=== PATIENT | female | born 1965 | race Caucasian/White ===

== ENCOUNTER → 2020-02-21 12:36 | Outpatient (BNVA) | payer OTHER, SELFPAY | PROVIDERS: Visit Provider Family Medicine | DX: E03.9 Hypothyroidism, unspecified (principal); J45.909 Unspecified asthma, uncomplicated; Z79.899 Other long term (current) drug therapy | CPT/HCPCS: 80053; 80061; 84443; 85025 ==

== ENCOUNTER → 2020-09-22 10:45 | Outpatient (BNVA) | payer OTHER, SELFPAY | PROVIDERS: PCP Family Medicine; Visit Provider Family Medicine | DX: E03.8 Other specified hypothyroidism (principal); J45.30 Mild persistent asthma, uncomplicated; M79.7 Fibromyalgia | CPT/HCPCS: 80053; 80061; 84443 ==

== ENCOUNTER → 2020-11-25 08:53 | Outpatient (BNVA) | payer OTHER, SELFPAY | PROVIDERS: PCP Family Medicine; Visit Provider Family Medicine | DX: R74.8 Abnormal levels of other serum enzymes (principal) | CPT/HCPCS: 80076 ==

== ENCOUNTER → 2021-01-26 12:11 | Outpatient (BNVA) | payer OTHER, SELFPAY | PROVIDERS: PCP Family Medicine; Visit Provider Family Medicine | DX: Z01.419 Encounter for gynecological examination (general) (routine) without abnormal findings (principal); E03.8 Other specified hypothyroidism; M05.7A Rheumatoid arthritis with rheumatoid factor of other specified site without organ or systems involvement; M79.7 Fibromyalgia; Z12.39 Encounter for other screening for malignant neoplasm of breast; Z23 Encounter for immunization | CPT/HCPCS: 80053; 80061; 84443; 85025; 88175 ==

== ENCOUNTER 2021-04-09 14:06 | Outpatient (CLI) | payer OTHER, SELFPAY ==
--- NOTE | 2021-04-09 14:30 | MM_ITS ---
WS: [email or web address] BILATERAL DIGITAL SCREENING MAMMOGRAPHY WITH CAD CLINICAL INFORMATION: Z12.39 - Encounter for other screening for malignant neop... HISTORY: Screening mammogram. No current complaints. COMPARISON: Outside mammograms 2013, 2016, 2018. TECHNIQUE: Bilateral CC and MLO views. FINDINGS: The breasts are composed of heterogeneous fibroglandular density tissue, which can limit the detectio n of small underlying mass lesions. Increasing heterogeneous cluster calcifications posterior depth u pper outer right breast increased since 2018. Recommend spot magnification views in further evaluatio n. Left breast is unremarkable and unchanged. MM/[place] [id number] IMPRESSION: BI-RADS: 0-Incomplete: Need additional imaging evaluation FOLLOW UP: Need Additional Imaging Recommend diagnostic mammography with spot magnification views heterogeneous ca lcifications posterior depth upper outer RIGHT breast.
== END 2021-04-09 14:07 | disposition home or self-care (01) ==
LOC: RADSHAW 14:17
PROVIDERS: PCP Family Medicine; Visit Provider Family Medicine
DX: Z12.31 Encounter for screening mammogram for malignant neoplasm of breast (principal)
CPT/HCPCS: 77067

== ENCOUNTER 2021-05-13 13:00 | Outpatient (CLI) | payer OTHER, SELFPAY ==
--- NOTE | 2021-05-13 13:12 | MM_ITS ---
WS: [email or web address] RIGHT DIGITAL MAMMOGRAPHY WITH CAD CLINICAL INFORMATION: R92.1 - Mammographic calcification found on diagnostic im... COMPARISON: April 09, 2021 TECHNIQUE: 4 views of the right breast were obtained. FINDINGS: The right breast is composed of heterogeneous fibroglandular density tissue, which can limit the dete ction of small underlying mass lesions. Amorphous heterogeneous calcifications upper outer right fouzia st stable in appearance compared to the prior examination. Calcifications are indeterminant and some are in a branching configuration. Recommend further evaluation with stereotactic guided biopsy. MM/[place] [id number] IMPRESSION: BI-RADS: 4-Suspicious Finding-Biopsy Should Be Considered FOLLOW UP: Stereotactic Biopsy Recommended RECOMMEND STEREOTACTIC GUIDED BIOPSY CALCIFICATIONS UPPER OUTER RIGHT BREAST.
== END 2021-05-13 13:01 | disposition home or self-care (01) ==
LOC: RADSHAW 13:09
PROVIDERS: PCP Family Medicine; Visit Provider Family Medicine
DX: R92.1 Mammographic calcification found on diagnostic imaging of breast (principal)
CPT/HCPCS: 77065

== ENCOUNTER 2021-06-08 12:04 | Outpatient (CLI) | payer OTHER, SELFPAY ==
--- NOTE | 2021-06-08 12:23 | MM_ITS ---
WS: [email or web address] STEREOTACTIC LEFT BREAST BIOPSY WITH VACUUM ASSISTANCE. History: Heterogeneous RIGHT breast calcifications. Biopsy recommended for suspicious calcifications. Comparison: May 13, 2021 Procedure, risks, and complications were discussed the patient who agreed to proceed. Prior imaging w as reviewed. Cluster of calcifications within the RIGHT breast are localized. Stereotactic imaging was performed. Patient was prepped and draped in usual sterile fashion. After 1% lidocaine, calcifications were targ eted stereotactically in the RIGHT breast. Small incision was made. Needle advanced into the cluster of calcifications RIGHT breast with imaging demonstrating appropriate position relative to the calcif ications. Multiple vacuum-assisted core biopsies were obtained. Postprocedure imaging demonstrates ca lcifications within the biopsy specimen. The biopsy cavity was lavaged. Titanium clip was placed at the biopsy site. Postprocedure imaging dem onstrates clip in good position. No immediate complications. MM/[place] [id number] IMPRESSION: 1. Uncomplicated vacuum-assisted stereotactic biopsy of calcifications in the RIGHT breast. Pathology: A. Breast, right , calcifications, stereotactic biopsy: -Benign breast tissue with fibrocystic changes and numerous microcalcifications . -Multiple foci of usual ductal hyperplasia with sclerosing adenosis. -No atypia or malignancy identified. Recommend 6 month diagnostic mammographic follow-up postbiopsy with spot magnif ication views of the calcifications.
--- NOTE | 2021-06-08 12:23 | MM_ITS ---
WS: [email or web address] STEREOTACTIC LEFT BREAST BIOPSY WITH VACUUM ASSISTANCE. History: Heterogeneous RIGHT breast calcifications. Biopsy recommended for suspicious calcifications. Comparison: May 13, 2021 Procedure, risks, and complications were discussed the patient who agreed to proceed. Prior imaging w as reviewed. Cluster of calcifications within the RIGHT breast are localized. Stereotactic imaging was performed. Patient was prepped and draped in usual sterile fashion. After 1% lidocaine, calcifications were targ eted stereotactically in the RIGHT breast. Small incision was made. Needle advanced into the cluster of calcifications RIGHT breast with imaging demonstrating appropriate position relative to the calcif ications. Multiple vacuum-assisted core biopsies were obtained. Postprocedure imaging demonstrates ca lcifications within the biopsy specimen. The biopsy cavity was lavaged. Titanium clip was placed at the biopsy site. Postprocedure imaging dem onstrates clip in good position. No immediate complications. MM/MM surgical specimen RT IMPRESSION: 1. Uncomplicated vacuum-assisted stereotactic biopsy of calcifications in the RIGHT breast. Pathology: A. Breast, right , calcifications, stereotactic biopsy: -Benign breast tissue with fibrocystic changes and numerous microcalcifications . -Multiple foci of usual ductal hyperplasia with sclerosing adenosis. -No atypia or malignancy identified. Recommend 6 month diagnostic mammographic follow-up postbiopsy with spot magnif ication views of the calcifications.
--- NOTE | 2021-06-08 12:30 | MM_ITS ---
WS: [email or web address] STEREOTACTIC LEFT BREAST BIOPSY WITH VACUUM ASSISTANCE. History: Heterogeneous RIGHT breast calcifications. Biopsy recommended for suspicious calcifications. Comparison: May 13, 2021 Procedure, risks, and complications were discussed the patient who agreed to proceed. Prior imaging w as reviewed. Cluster of calcifications within the RIGHT breast are localized. Stereotactic imaging was performed. Patient was prepped and draped in usual sterile fashion. After 1% lidocaine, calcifications were targ eted stereotactically in the RIGHT breast. Small incision was made. Needle advanced into the cluster of calcifications RIGHT breast with imaging demonstrating appropriate position relative to the calcif ications. Multiple vacuum-assisted core biopsies were obtained. Postprocedure imaging demonstrates ca lcifications within the biopsy specimen. The biopsy cavity was lavaged. Titanium clip was placed at the biopsy site. Postprocedure imaging dem onstrates clip in good position. No immediate complications. MM/[place] [id number] IMPRESSION: 1. Uncomplicated vacuum-assisted stereotactic biopsy of calcifications in the RIGHT breast. Pathology: A. Breast, right , calcifications, stereotactic biopsy: -Benign breast tissue with fibrocystic changes and numerous microcalcifications . -Multiple foci of usual ductal hyperplasia with sclerosing adenosis. -No atypia or malignancy identified. Recommend 6 month diagnostic mammographic follow-up postbiopsy with spot magnif ication views of the calcifications.
== END 2021-06-08 12:05 | disposition home or self-care (01) ==
PROVIDERS: PCP Family Medicine; Visit Provider Family Medicine
DX: R92.1 Mammographic calcification found on diagnostic imaging of breast (principal); N62 Hypertrophy of breast
CPT/HCPCS: 19283; 77065; 88305

== ENCOUNTER → 2021-12-15 12:10 | Outpatient (BNVA) | payer OTHER, SELFPAY | PROVIDERS: PCP Family Medicine; Visit Provider Family Medicine | DX: Z79.899 Other long term (current) drug therapy (principal); M47.819 Spondylosis without myelopathy or radiculopathy, site unspecified | CPT/HCPCS: 82565; 84450; 84460; 85025; 85651; 86140 ==

== ENCOUNTER 2021-12-17 15:00 | Outpatient (CLI) | payer OTHER, SELFPAY ==
--- NOTE | 2021-12-17 15:04 | MM_ITS ---
WS: [email or web address] RIGHT 3D TOMOSYNTHESIS DIGITAL MAMMOGRAPHY WITH CAD CLINICAL INFORMATION: N63.0 - Unspecified lump in unspecified breast COMPARISON: June 08, 2021 TECHNIQUE: 3 views of the right breast were obtained. FINDINGS: The right breast is composed of heterogeneous fibroglandular density tissue, which can limit the dete ction of small underlying mass lesions. Biopsy marker RIGHT breast in the area of previously biopsied calcifications. Residual calcifications are stable in appearance. No new findings. No suspicious focal mass, asymmetry, calcifications, or architectural distortion. No evidence of katia gnancy. MM/[place] [id number] IMPRESSION: BI-RADS: 2-Benign FOLLOW UP: 1 Year Follow-up Recommend return to annual diagnostic mammography.
== END 2021-12-17 15:01 | disposition home or self-care (01) ==
LOC: RAD 15:01
PROVIDERS: PCP Family Medicine; Visit Provider Family Medicine
DX: N63.10 Unspecified lump in the right breast, unspecified quadrant (principal)
CPT/HCPCS: 77061

== ENCOUNTER → 2022-06-15 10:33 | Outpatient (BNVA) | payer OTHER, SELFPAY | PROVIDERS: PCP Family Medicine; Visit Provider Internal Medicine Rheumatology | DX: M05.7A Rheumatoid arthritis with rheumatoid factor of other specified site without organ or systems involvement (principal); Z79.899 Other long term (current) drug therapy; M06.9 Rheumatoid arthritis, unspecified; Z11.59 Encounter for screening for other viral diseases | CPT/HCPCS: 73130; 73630; 80076; 82306; 82565; 85025; 85651; 86036; 86140 ==

== ENCOUNTER → 2022-07-11 10:26 | Outpatient (BNVA) | payer OTHER, SELFPAY | PROVIDERS: PCP Family Medicine; Visit Provider Internal Medicine Rheumatology | DX: M05.7A Rheumatoid arthritis with rheumatoid factor of other specified site without organ or systems involvement (principal); Z11.59 Encounter for screening for other viral diseases; Z79.899 Other long term (current) drug therapy; E03.8 Other specified hypothyroidism; R53.83 Other fatigue; E03.9 Hypothyroidism, unspecified | CPT/HCPCS: 84439; 84443; 86480 ==

== ENCOUNTER → 2022-08-23 10:17 | Outpatient (BNVA) | payer OTHER, SELFPAY | PROVIDERS: PCP Family Medicine; Visit Provider Internal Medicine Rheumatology | DX: M05.79 Rheumatoid arthritis with rheumatoid factor of multiple sites without organ or systems involvement (principal); M79.7 Fibromyalgia; Z71.85 Encounter for immunization safety counseling; Z79.899 Other long term (current) drug therapy | CPT/HCPCS: 36415; 80076; 82565; 85025; 86140 ==

== ENCOUNTER → 2022-11-29 10:17 | Outpatient (BNVA) | payer OTHER, SELFPAY | PROVIDERS: PCP Family Medicine; Visit Provider Internal Medicine Rheumatology | DX: Z79.899 Other long term (current) drug therapy (principal); M05.79 Rheumatoid arthritis with rheumatoid factor of multiple sites without organ or systems involvement; M79.7 Fibromyalgia; Z71.85 Encounter for immunization safety counseling | CPT/HCPCS: 36415; 80076; 82565; 85025; 86140 ==

== ENCOUNTER 2023-02-08 15:11 | Outpatient (CLI) | payer OTHER, SELFPAY ==
--- NOTE | 2023-02-08 15:20 | MM_ITS ---
WS: [email or web address] BILATERAL 3D TOMOSYNTHESIS DIGITAL SCREENING MAMMOGRAPHY WITH CAD CLINICAL INFORMATION: Z12.31 - Encounter for screening mammogram for malignant ... HISTORY: Screening mammogram. No current complaints. COMPARISON: 2021 TECHNIQUE: Bilateral CC and MLO views. FINDINGS: The breasts are composed of heterogeneous fibroglandular density tissue, which can limit the detectio n of small underlying mass lesions. No suspicious mass, asymmetry, calcifications, or architectural d istortion. No evidence of malignancy. Biopsy marker RIGHT breast with stable previously biopsied calc ifications. IMPRESSION: MM/[place] [id number] BI-RADS: 2-Benign FOLLOW UP: 1 Year Follow-up Recommend return to annual screening mammography.
== END 2023-02-08 15:12 | disposition home or self-care (01) ==
LOC: RAD 15:12
PROVIDERS: PCP Family Medicine; Visit Provider Family Medicine
DX: Z12.31 Encounter for screening mammogram for malignant neoplasm of breast (principal)
CPT/HCPCS: 77063; 77067

== ENCOUNTER → 2023-03-07 10:34 | Outpatient (BNVA) | payer OTHER, SELFPAY | PROVIDERS: PCP Family Medicine; Visit Provider Internal Medicine Rheumatology | DX: M05.79 Rheumatoid arthritis with rheumatoid factor of multiple sites without organ or systems involvement (principal); Z79.899 Other long term (current) drug therapy | CPT/HCPCS: 80076; 82565; 85025; 86140 ==

== ENCOUNTER → 2023-06-06 15:09 | Outpatient (BNVA) | payer BC, SELFPAY | PROVIDERS: PCP Family Medicine; Visit Provider Family Medicine | DX: E03.8 Other specified hypothyroidism (principal); M05.7A Rheumatoid arthritis with rheumatoid factor of other specified site without organ or systems involvement; J45.30 Mild persistent asthma, uncomplicated; Z79.899 Other long term (current) drug therapy | CPT/HCPCS: 80053; 80061; 84443; 85025 ==

== ENCOUNTER → 2023-10-03 10:14 | Outpatient (BNVA) | payer BC, SELFPAY | PROVIDERS: PCP Family Medicine; Visit Provider Family Medicine | DX: M21.612 Bunion of left foot (principal); M25.511 Pain in right shoulder; M54.50 Low back pain, unspecified; M25.50 Pain in unspecified joint; M25.521 Pain in right elbow; Z79.899 Other long term (current) drug therapy; M05.79 Rheumatoid arthritis with rheumatoid factor of multiple sites without organ or systems involvement | CPT/HCPCS: 80076; 82565; 84550; 85025; 85651; 86140 ==

== ENCOUNTER 2023-10-09 10:04 | Outpatient (CLI) | payer BC, SELFPAY ==
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
== END 2023-10-09 10:05 | disposition home or self-care (01) ==
LOC: RAD 10:05
PROVIDERS: PCP Family Medicine; Visit Provider Family Medicine
DX: M25.511 Pain in right shoulder (principal); M51.36 Other intervertebral disc degeneration, lumbar region; M19.09 Primary osteoarthritis, other specified site
CPT/HCPCS: 72100; 73030

== ENCOUNTER → 2023-10-23 09:01 | Outpatient (BNVA) | payer BC, SELFPAY | PROVIDERS: PCP Family Medicine; Visit Provider Podiatrist Foot & Ankle Surgery | DX: M21.611 Bunion of right foot; M21.612 Bunion of left foot; M25.871 Other specified joint disorders, right ankle and foot; M19.071 Primary osteoarthritis, right ankle and foot | CPT/HCPCS: 73630 ==

== ENCOUNTER 2023-11-28 09:01 | Outpatient (CLI) | payer BC, SELFPAY ==
--- NOTE | 2023-11-28 09:30 | MR_ITS ---
WS: [email or web address] MRI RIGHT SHOULDER NONCONTRAST TECHNIQUE: Sagittal T2, coronal T1, T2 and proton density imaging. Axial gradient PDE imaging. CLINICAL INFORMATION: rt shoulder pain COMPARISON: None. FINDINGS: Moderate degenerative arthritis of the AC joint with mild edema. Moderate downsloping acromion with s ubacromial spurring. Impingement distal supraspinatus. Tiny amount of subacromial subdeltoid fluid. T endinopathy in the supraspinatus and infraspinatus. Mild chronic thinning of the supraspinatus. Normal teres minor. Normal subscapularis. Normal biceps tendon in the bicipital groove. Intra-articul ar biceps tendon appears intact. Normal bone marrow signal in the humerus and glenoid. Moderate degen erative narrowing of the glenohumeral articulation. Small lobulated ganglion cyst along the ventral s ubscapularis measuring 10 mm. MR/MR shoulder RT wo con* [id number] IMPRESSION: 1. Moderate degenerative arthritis AC joint with moderate downsloping acromion . Small amount of associated fluid and edema. 2. Impingement distal supraspinatus with tendinopathy in the supraspinatus and infraspinatus. 3. Rotator cuff is otherwise intact. 4. Normal biceps tendon in the bicipital groove. 5. Intra-articular biceps tendon appears intact. 6. No other acute findings.
== END 2023-11-28 09:02 | disposition home or self-care (01) ==
LOC: RAD 09:02
PROVIDERS: PCP Family Medicine; Visit Provider Family Medicine
DX: M19.011 Primary osteoarthritis, right shoulder (principal); M75.41 Impingement syndrome of right shoulder; M25.711 Osteophyte, right shoulder
CPT/HCPCS: 73221

== ENCOUNTER 2023-12-26 06:00 | Outpatient (RCR) | payer BC, SELFPAY | END 2024-01-22 23:59 | disposition home or self-care (01) | LOC: TPT 06:00 | PROVIDERS: Visit Provider Family Medicine | DX: M25.511 Pain in right shoulder (principal) | CPT/HCPCS: 97110; 97161 ==

== ENCOUNTER 2024-01-23 06:00 | Outpatient (RCR) | payer BC, SELFPAY | END 2024-01-30 23:59 | disposition home or self-care (01) | LOC: TPT 06:00 | PROVIDERS: Visit Provider Family Medicine | DX: M25.511 Pain in right shoulder (principal) | CPT/HCPCS: 97110 ==

== ENCOUNTER 2024-02-01 10:11 | Emergency (ER) | payer BC, SELFPAY ==
[2024-02-01 10:28] VITALS: BP 146/46; PULSE 86; RESP 16; TEMP 37.1; O2SAT 98; BMI 23.7
--- NOTE | 2024-02-01 10:34 | CT_ITS ---
WS: [email or web address] CT ABDOMEN PELVIS TECHNIQUE: Contrast-enhanced CT of the abdomen and pelvis with coronal and sagittal reformatted image s. CLINICAL INFORMATION: Abdominal pain COMPARISON: None. DLP: 384.[address] scans at [facility] use at least one of these dose optimization techniques: automated e xposure control; mA and/or kV adjustment per patient size (includes targeted exams where dose is matc hed to clinical indication); or iterative reconstruction. FINDINGS: Diffuse thickening with submucosal enhancement and surrounding induration in the LEFT colon extending from the splenic flexure through the sigmoid colon. Findings suspicious for an infectious or inflamm atory colitis. A few sigmoid diverticuli with 1 or 2 LEFT colon diverticuli. No drainable abscess or fluid collection. Diffuse fatty infiltration of the liver. Normal portal vein and splenic vein. Normal GE junction. Adr enal glands are normal. No hydronephrosis in either kidney. Normal pancreatic enhancement. Normal river iber abdominal aorta. Celiac and SMA are patent. GINETTE is patent. Lung bases are well aerated. Tiny fat-containing umbilical hernia. Trace free fluid in the cul-de-sac . Low-attenuation enlarged RIGHT inguinal lymph node indeterminate measuring 2.1 x 1.5 cm. Disc space narrowing L4-5 and L5-S1. Heterogeneously enhancing retroverted uterus with endometrial thickening at the uterine fundus. Recom mend [employer] follow-up and pelvic ultrasound. Endometrial neoplasia/hyperplasia not excluded in a postmen opausal patient. Probably small uterine fibroids. In addition, mild soft tissue thickening along the cervix. CT/CT abdomen pelvis w con* [id number] IMPRESSION: 1. Diffuse colitis extending from the splenic flexure into the sigmoid colon. Diffuse thickening with inflammatory stranding and induration about the LEFT co areli. Some of this may be due to diverticulitis but diffusely involves the LEFT colon. Also consider inflammatory bowel disease. Recommend follow-up to resolut ion. 2. Sigmoid diverticulosis. A few diverticuli in the LEFT colon. 3. No drainable abscess or fluid collection. 4. Diffuse fatty infiltration of the liver. 5. No other acute findings. 6. Enlarged RIGHT inguinal lymph node measuring 2.2 x 1.5 cm is indeterminant. Consider further evaluation with ultrasound-guided biopsy if persistent. 7. Heterogeneously nodular enhancing retroverted uterus with endometrial and c ervical thickening. Recommend [employer]ATING [employer] follow-up. Endometrial hyperplasia/neoplasia not excluded in a postmenopausal patient. 8. In addition lobulation along the dorsal uterus suspicious for uterine fibro id. Notified Dafne Coats MD at 02/01/2024 11:38 AM.
--- NOTE | 2024-02-01 10:34 | W.ED.ABDPA2 ---
HPI - Abdominal Pain General: Chief Complaint: Abdominal Pain Stated Complaint: abd pain Time Seen by Provider: 02/01/24 10:25 History of Present Illness: 58-year-old female who presents emergency room with abdominal pain, nausea and vomiting. Says this started overnight. She had very low abdominal pain. All the way across the bottom of her abdomen. She has had bright red blood in her stools. She had nausea and vomiting because of the pain. Possibly had a fever. She had chills. She says over the last year she has had 5 episodes where when she would go to the bathroom she would have vomiting. No dysuria. No chest pain. No shortness of breath. No altered mental status. Related Data Home Medications Medication Instructions Recorded Confirmed finasteride 5 mg tablet 5 mg PO DAILY hair loss 10/23/23 02/01/24 minoxidil 2.5 mg tablet 2.5 mg PO DAILY 02/01/24 02/01/24 Previous Rx's Medication Instructions Recorded estradiol 0.05 mg/24 hr weekly 1 patch transdermal .weekly #12 ea 05/26/23 transdermal patch albuterol sulfate 90 mcg/actuation 2 puff inhalation Q6H PRN 06/06/23 aerosol inhaler bronchospasm #8.5 grams fluticasone 500 mcg-salmeterol 50 1 inh inhalation BID #180 ea 06/06/23 mcg/dose blistr powdr for inhalation (Advair Diskus) levothyroxine 50 mcg tablet 50 mcg PO DAILY #90 tabs 06/06/23 (Synthroid) montelukast 10 mg tablet 10 mg PO DAILY #90 tabs 06/06/23 oxycodone-acetaminophen 5 mg-325 1 tab PO Q6H PRN pain 7 days #28 06/06/23 mg tablet tabs prednisone 20 mg tablet See Rx Instructions PO .COMPLEX 11/21/23 PRN joint pain flare #30 tabs tofacitinib 5 mg tablet (Xeljanz) 5 mg PO BID #60 tabs 11/21/23 hydroxychloroquine 200 mg tablet 200 mg PO BID #180 tabs 12/18/23 ciprofloxacin HCl 500 mg tablet 500 mg PO BID 10 days #20 tabs 02/01/24 hydrocodone 5 mg-acetaminophen 325 1 tab PO Q6H PRN pain #20 tabs 02/01/24 mg tablet metronidazole 500 mg tablet 500 mg PO Q8H 10 days #30 tabs 02/01/24 ondansetron 8 mg disintegrating 8 mg PO Q6H #14 tabs 02/01/24 tablet prednisone 20 mg tablet 60 mg (3 x 20 mg) PO DAILY #20 tabs 02/01/24 Allergies Allergy/AdvReac Type Severity Reaction Status Date / Time adalimumab-adaz Allergy Unknown low BP Verified 02/01/24 10:34 [From Hyrimoz] upadacitinib [From Rinvoq] Allergy Unknown Constipatio Verified 02/01/24 10:34 n cephalexin [From Keflex] Allergy Unknown Verified 02/01/24 10:34 erythromycin base Allergy ALGY-Anaphy Verified 02/01/24 10:34 laxis Penicillins Allergy ALGY-Hives Verified 02/01/24 10:34 Sulfa (Sulfonamide Allergy ALGY-Hives Verified 02/01/24 10:34 Antibiotics) venlafaxine [From Effexor] Allergy Unknown Verified 02/01/24 10:34 Review of Systems Narrative: Constitutional symptoms: Negative except as documented in HPI. Skin symptoms: Negative except as documented in HPI. Eye symptoms: Negative except as documented in HPI. ENMT symptoms: Negative except as documented in HPI. Respiratory symptoms: Negative except as documented in HPI. Cardiovascular symptoms: Negative except as documented in HPI. Gastrointestinal symptoms: Negative except as documented in HPI. Genitourinary symptoms: Negative except as documented in HPI. Musculoskeletal symptoms: Negative except as documented in HPI. Neurologic symptoms: Negative except as documented in HPI. Psychiatric symptoms: Negative except as documented in HPI. Endocrine symptoms: Negative except as documented in HPI. PFSH ED PFSH: Medical History Immunization counseling Seropositive rheumatoid arthritis of multiple sites Alopecia Joint pain High risk medication use Hypothyroid Rheumatoid arthritis Asthma Fibromyalgia Surgical History Hx of appendectomy Hx of eye surgery History of ankle surgery Family History Father Cancer lung Mother Cancer lung Diabetes Grandmother Cancer breast Other Hypertension Lupus Denies family history of Rheumatoid arthritis Clotting disorder Anesthesia complication Bleeding disorder Family history of premature coronary artery disease Lung disease Stroke Social History Smoking and tobacco/nicotine status: never used tobacco/nicotine Second hand smoke exposure: No Alcohol intake: current Alcohol intake frequency: holidays/special occasions only Substance/Drug Use: never Lives independently: Yes Household members: spouse Marital status: Current occupational status: employed Current gender identity: Female Special harrison needs: No Agree to transfusion: Yes Physical Exam Narrative: EXAM NARRATIVE: General: Alert, no acute distress. Skin: Warm, dry. Head: Normocephalic, atraumatic. Neck: Supple, trachea midline. Eye: Extraocular movements are intact. Ears, nose, mouth and throat: mucosa moist. Cardiovascular: Regular, Normal peripheral perfusion. Respiratory: Lungs are clear to auscultation, respirations are non-labored, breath sounds are equal, Symmetrical chest wall expansion. Gastrointestinal: Soft, complains of lower abdominal tenderness, Non distended Musculoskeletal: Normal ROM, no deformity. Neurological: Alert and oriented, No focal neurological deficit observed. Psychiatric: Cooperative, appropriate mood & affect. Course Vital Signs: Vital signs: Vital Signs Temperature 98.8 F 02/01/24 10:28 Pulse Rate 71 02/01/24 11:13 Respiratory Rate 16 02/01/24 10:28 Blood Pressure 127/71 02/01/24 11:13 Pulse Oximetry 96 02/01/24 11:13 Oxygen Delivery Me thod Room Air 02/01/24 11:13 MDM - Abdominal Pain Medical Decision Making Medical decision making: Differential diagnosis including but not limited to and based on the above HPI, review of systems and physical exam: Would have concern for diverticulitis, urinary tract infection, colitis, bowel obstruction, kidney stones Orders placed to evaluate differential diagnosis based on the above differential, HPI and physical exam Lab Review: Laboratory results were reviewed and interpreted by myself the emergency room physician. Some mild leukocytosis with a white count of 13.3. Hemoglobin normal at 14. No renal failure. BUN/creatinine are 14 and 0.8. CRP is mildly elevated at 6. CT of the abdomen pelvis: I discussed findings with the radiologist on-call. Some formation of the colon. Colitis. Also some mild enlargement of the uterus. Recommended follow-up with gynecology. This was reviewed and interpreted by myself the emergency room physician. I also reviewed the radiology report. I reviewed the patient's medical record. Reexamination: Patient remained stable. No increased work of breathing. No altered mental status. No focal motor deficits. Assessment and plan: Colitis ?Solu-Medrol, Cipro and Flagyl IV. - Discharged home - Discussed findings and plan with patient. Answered any questions. - All laboratory values were reviewed and interpreted personally by myself, the ER physician - All imaging was reviewed and interpreted personally by myself, the ER physician. - Evaluation and treatment of this problem were appropriate in the emergency setting Lab Data 02/01/24 10:41 02/01/24 10:41 Labs/Radiology: Laboratory Results WBC 13.24 10^3/uL (3.29-11.43) H 02/01/24 10:41 RBC 4.25 10^6/uL (3.85-5.65) 02/01/24 10:41 Hgb 14.00 g/dL (11.27-16.99) 02/01/24 10:41 Hct 41.2 % (36-47) 02/01/24 10:41 MCV 96.9 fl (85-98) 02/01/24 10:41 MCH 32.9 pg (27-33) 02/01/24 10:41 MCHC 34.0 g/dL (30-55) 02/01/24 10:41 RDW 12.3 % (12.1-15.1) 02/01/24 10:41 Plt Count 350 10^3/cmm (157-399) 02/01/24 10:41 MPV 9.5 fL (7.4-10.4) 02/01/24 10:41 Neut % (Auto) 81.9 % 02/01/24 10:41 Lymph % (Auto) 10.6 % 02/01/24 10:41 [place] % (Auto) 6.6 % 02/01/24 10:41 Eos % (Auto) 0.5 % 02/01/24 10:41 Baso % (Auto) 0.2 % 02/01/24 10:41 Neut # (Auto) 10.85 10^3/uL (1.8-7.7) H 02/01/24 10:41 Lymph # (Auto) 1.4 10^3/uL (0.8-4.8) 02/01/24 10:41 [place] # (Auto) 0.9 10^3/uL (0.2-0.9) 02/01/24 10:41 Eos # (Auto) 0.1 10^3/uL (0.0-0.8) 02/01/24 10:41 Baso # (Auto) 0.0 10^3/uL (0.0-0.1) 02/01/24 10:41 Nucleated RBC % (auto) 0 % 02/01/24 10:41 Nucleated RBCs # 0.0 /100WBC 02/01/24 10:41 Sodium 138 mmol/L (136-145) 02/01/24 10:41 Potassium 4.2 mmol/L (3.5-5.1) 02/01/24 10:41 Chloride 105 mmol/L (98-107) 02/01/24 10:41 Carbon Dioxide 23 mmol/L (22-29) 02/01/24 10:41 Anion Gap 14.2 (5-19) 02/01/24 10:41 BUN 14 mg/dL (6-20) 02/01/24 10:41 Creatinine 0.8 mg/dL (0.5-0.9) 02/01/24 10:41 GFR Calculation 73.9 mL/min (90-130) L 02/01/24 10:41 Glucose 94 mg/dL (65-115) 02/01/24 10:41 Calculated Osmolality 286 mOsm/kg (285-295) 02/01/24 10:41 Lactic Acid 0.9 mmol/L (0.5-2.2) 02/01/24 10:41 Calcium 8.8 mg/dL (8.5-10.5) 02/01/24 10:41 Total Bilirubin 1.1 mg/dL (0.15-1.2) 02/01/24 10:41 AST 33 U/L (0-32) H 02/01/24 10:41 ALT 18 U/L (0-33) 02/01/24 10:41 Alkaline Phosphatase 62 U/L (35-105) 02/01/24 10:41 C-Reactive Protein 6.1 mg/L (0.0-4.9) H 02/01/24 10:41 Total Protein 6.8 g/dL (6.6-8.7) 02/01/24 10:41 Albumin 4.1 g/dL (3.5-5.2) 02/01/24 10:41 Globulin 2.7 g/dL (1.3-4.6) 02/01/24 10:41 All radiology interpretation(s) finalized by discharge Discharge Plan Discharge Patient Disposition: Home Clinical Impression: Colitis Condition: Stable Prescriptions: New hydrocodone-acetaminophen 5-325 mg tablet 1 tab PO Q6H PRN (Reason: pain) Qty: 20 0RF prednisone 20 mg tablet 60 mg PO DAILY Qty: 20 0RF Rx Instructions: 3 tabs (60 mg) x 3 days. 2 tabs (40 mg) x 3 days. 1 tab (20 mg) x 3 days. 1/2 tab (10 mg) x 4 days metronidazole 500 mg tablet 500 mg PO Q8H 10 Days Qty: 30 0RF ciprofloxacin HCl 500 mg tablet 500 mg PO BID 10 Days Qty: 20 0RF ondansetron 8 mg tablet,disintegrating 8 mg PO Q6H Qty: 14 0RF Rx Instructions: Take 1/2-1 tab every 6 hours as needed for nausea and vomiting No Action oxycodone-acetaminophen 5-325 mg tablet 1 tab PO Q6H PRN (Reason: pain) 7 Days Qty: 28 0RF montelukast 10 mg tablet 10 mg PO DAILY Qty: 90 4RF levothyroxine [Synthroid] 50 mcg tablet 50 mcg PO DAILY Qty: 90 2RF fluticasone propion-salmeterol [Advair Diskus] 500-50 mcg/dose blister with device 1 inh INHALATION BID Qty: 180 2RF albuterol sulfate 90 mcg/actuation HFA aerosol inhaler 2 puff INHALATION Q6H PRN (Reason: bronchospasm) Qty: 8.5 4RF prednisone 20 mg tablet See Rx Instructions PO .COMPLEX PRN (Reason: joint pain flare) Qty: 30 1RF Rx Instructions: take 1 or 2 tab daily for 3-7 days as needed for arthritis flare PO PRN; Xeljanz 5 mg tablet 5 mg PO BID Qty: 60 5RF finasteride 5 mg tablet 5 mg PO DAILY estradiol 0.05 mg/24 hr patch weekly 1 patch transdermal .weekly Qty: 12 3RF hydroxychloroquine 200 mg tablet 200 mg PO BID Qty: 180 1RF minoxidil 2.5 mg tablet 2.5 mg PO DAILY Discharge Orders: Discharge ED (Routine); Ordered 02/01/24 Ordered By: Dafne Coats Discharge Diet: Usual diet Discharge Activity: Increase activity as tolerated Patient Instructions: Colitis (ED) Activity Restrictions/Additional Instructions: You need to have follow-up with your primary care physician and possibly director government for the colitis. Also there was some thickening of your uterus seen on CT for which you should follow with gynecology Thank you for choosing [facility] for your healthcare needs today. Please realize this is an emergency room and that we are providing you with a medical screening exam and this may not be complete and all inclusive of all the testing and or work up that you may need to determine your ailment or severity of your illness. You have been screened and evaluated and felt safe for discharge. Health conditions do change or evolve sometimes and as such it is important that you follow up with your Primary Doctor to be re checked, 3-5 days is a general good time frame for follow up. You are always welcome to return to the ED for re assessment if your symptoms are worsening or you have new concerns Coding Level of Care Code ED [employer] for Jesús Valente
[2024-02-01 10:44] VITALS: BP 119/71; O2SAT 96
[2024-02-01 10:46] LABS: Basophils % 0.2 %; Eosinophils # 0.1 10^3/uL (0.0-0.8); Eosinophils % 0.5 %; Hematocrit 41.2 % (36-47); Lymphocytes # 1.4 10^3/uL (0.8-4.8); Lymphocytes % 10.6 %; Mean Corpuscular Hemoglobin 32.9 pg (27-33); Mean Corpuscular Volume 96.9 fl (85-98); Mean Platelet Volume 9.5 fL (7.4-10.4); Monocytes # 0.9 10^3/uL (0.2-0.9); Monocytes % 6.6 %; Neutrophils # 10.85 10^3/uL (1.8-7.7); Neutrophils % 81.9 %; Nucleated Red Blood Cells % 0 %; Platelet Count 350 10^3/cmm (157-399); Red Blood Count 4.25 10^6/uL (3.85-5.65); Red Cell Distribution Width 12.3 % (12.1-15.1); White Blood Count 13.24 10^3/uL (3.29-11.43)
[2024-02-01] MEDS: iohexol 350 mg/mL 500 mL Btl (per mL) IV (10:52)
[2024-02-01 11:04] LABS: Lactic Sepsis W/Reflex 0.9 mmol/L (0.5-2.2)
[2024-02-01 11:05] LABS: Alanine Aminotransferase 18 U/L (0-33); Albumin Level 4.1 g/dL (3.5-5.2); Alkaline Phosphatase 62 U/L (35-105); Blood Urea Nitrogen 14 mg/dL (6-20); C Reactive Protein 6.1 mg/L (0.0-4.9); Calcium 8.8 mg/dL (8.5-10.5); Carbon Dioxide 23 mmol/L (22-29); Chloride 105 mmol/L (98-107); Globulin 2.7 g/dL (1.3-4.6); Glomerular Filtration Rate 73.9 mL/min (90-130); Glucose 94 mg/dL (65-115); Osmolality Calculated 286 mOsm/kg (285-295); Sodium 138 mmol/L (136-145); Total Bilirubin 1.1 mg/dL (0.15-1.2); Total Protein 6.8 g/dL (6.6-8.7)
[2024-02-01 11:13] VITALS: BP 127/71; PULSE 71; O2SAT 96
[2024-02-01 11:15] LABS: Anion Gap 14.2 (5-19); Aspartate Amino Transferase 33 U/L (0-32); Potassium 4.2 mmol/L (3.5-5.1)
--- NOTE | 2024-02-01 11:36 | PC.PHAR ---
patient does have a specialty pharmacy xeljanz 5mg with [facility], also used to use humira but states she stopped that for the xeljanz
[2024-02-01] MEDS: methylPREDNISolone sod succ 125 mg/2 mL INJ IVP (12:03)
[2024-02-01] MEDS: metroNIDAZOLE 500 MG Tablet PO (12:05)
[2024-02-01] MEDS: ciprofloxacin 400 MG/200 ML PREMIX 200 MG IV (12:08)
[2024-02-01 12:14] VITALS: BP 116/54; PULSE 82; O2SAT 98
[2024-02-01 12:52] VITALS: BP 129/59; PULSE 87; O2SAT 98
[2024-02-01 13:28] VITALS: BP 129/58; PULSE 83; RESP 14; O2SAT 96
== END 2024-02-01 13:30 | disposition home or self-care (01) ==
PROVIDERS: Emergency Provider Emergency Medicine
DX: K52.9 Noninfective gastroenteritis and colitis, unspecified (principal)
CPT/HCPCS: 74177; 80053; 83605; 85025; 86140; 96365; 96375; 99285; J0744; J2919

== ENCOUNTER 2024-03-12 13:37 | Outpatient (CLI) | payer BC, SELFPAY ==
--- NOTE | 2024-03-12 13:40 | MM_ITS ---
WS: [id number] BILATERAL 3D TOMOSYNTHESIS DIGITAL SCREENING MAMMOGRAPHY WITH CAD CLINICAL INFORMATION: Z12.39 - Encounter for other screening for malignant neop... HISTORY: Screening mammogram. No current complaints. COMPARISON: 2022 TECHNIQUE: Bilateral CC and MLO views. FINDINGS: The breasts are composed of heterogeneous fibroglandular density tissue, which can limit the detectio n of small underlying mass lesions. No suspicious mass, asymmetry, calcifications, or architectural d istortion. No evidence of malignancy. Biopsy clip RIGHT breast with relatively stable adjacent previo usly biopsied calcifications. MM/MM [facility] tomosynthesis [id number] IMPRESSION: DENSITY: The breasts are heterogeneously dense, which may obscure small masses. BI-RADS: 2 - Benign FOLLOW UP: 1 Year Follow-up Recommend return to annual screening mammography.
== END 2024-03-12 13:38 | disposition home or self-care (01) ==
LOC: MOBLMAM 13:39
PROVIDERS: PCP Nurse Practitioner Family; Visit Provider Nurse Practitioner Family
DX: Z12.31 Encounter for screening mammogram for malignant neoplasm of breast (principal); R92.333 Mammographic heterogeneous density, bilateral breasts
CPT/HCPCS: 77063; 77067

== ENCOUNTER 2024-03-14 10:34 | Outpatient (CLI) | payer BC, SELFPAY ==
--- NOTE | 2024-03-14 10:42 | US_ITS ---
WS: [id number] Complete ABDOMINAL ULTRASOUND ULTRASOUND BILATERAL INGUINAL CANALS. HISTORY: Pain. COMPARISON: CT 02/01/2024 Liver: 12.8 cm in length. Normal size liver and echogenicity. No bile duct dilatation or mass. Portal Vein: Normal hepatopetal flow with monophasic waveform. Gallbladder: Normally distended gallbladder with no stones or wall thickening. CBD: 0.5 cm Pancreas: Normal size and echogenicity. Right kidney: 9.4 cm x 4.2 x 3.1 cm. Cortex:1.0 cm. Normal size and echogenicity. No hydronephrosis or mass. Left kidney: 9.6 cm x 4.5 cm x 4.3 cm. Cortex: 0.9 cm. Normal size and echogenicity. No hydronephrosis or mass. Spleen: 7.7 cm. Normal size and echogenicity. Aorta and IVC: Unremarkable abdominal aorta and IVC. ULTRASOUND BILATERAL INGUINAL CANALS. Ultrasound is performed of the inguinal canals. No mass or adenopathy identified. Omental fat is note d along the inguinal canal. No omental hernia was noted on the recent CT. This omental fat images pro bably just above the inguinal canal. There is no mass identified. No adenopathy. US/US abdomen complete* [id number] Impression: 1. Negative abdomen ultrasound. 2. No inguinal adenopathy identified.
== END 2024-03-14 10:35 | disposition home or self-care (01) ==
LOC: RAD 10:34
PROVIDERS: PCP Nurse Practitioner Family; Visit Provider Surgery
DX: R59.0 Localized enlarged lymph nodes (principal); R10.13 Epigastric pain
CPT/HCPCS: 76700

== ENCOUNTER 2024-03-20 09:26 | Day surgery (SDC) | payer BC, SELFPAY ==
[2024-03-20 09:41] VITALS: BP 128/56; PULSE 91; RESP 17; TEMP 36.8; O2SAT 98
[2024-03-20 09:42] VITALS: BMI 23.0
[2024-03-20] MEDS: sodium chloride 0.9% 1,000 ML 30 ML IV (09:52)
--- NOTE | 2024-03-20 09:58 | ANES.PREANE2 ---
Pre-Anesthetic Assessment Height/Weight: Height 1.6 m Weight 58.967 kg Temp Pulse Resp BP Pulse Ox O2 Del Method 98.2 F 91 17 128/56 98 Room Air 03/20/24 09:41 03/20/24 09:41 03/20/24 09:41 03/20/24 09:41 03/20/24 09:41 03/20/24 09:41 Preop Diagnosis: screening Operation Date: 03/20/24 10:30 Proposed Procedures p EGD 60389, 97259, G0105, K92.2, K59.04, R14.0, R10.13(Not Applicable) - DO karen Porter Colonoscopy(Not Applicable) - Asher Sadler DO Familial anesthetic complications: none Was Beta Henri taken within 24 hours: N/A Was Clonidine taken within 24 hours: N/A Last intake: Intake Last Liquid Date 03/19/24 Last Liquid Time 20:00 Last Solid Date 03/18/24 Last Solid Time 18:00 Social No alcohol and No tobacco Exam alert, oriented x 3 and clear to auscultation bilaterally Airway Cervical ROM: within normal limits Mallampati: Class II Dentition: full History/ROS No significant history except as noted Pulmonary Asthma CV/HEM None reported None reported Hepatic None reported GI None reported Metabolic Thyroid Disease Musc/skel None reported Neuropsych None reported Anesthetic Plan ASA status: 2 Anesthesia: Anesthesia Evaluation and MAC Risk of > 500 ml blood loss (7ml/kg in children): No Medications/Allergies Home Medications Medication Instructions Recorded Confirmed Last Taken Type estradiol 0.05 mg/24 hr weekly 1 patch transdermal .weekly #12 ea 05/26/23 03/18/24 03/16/24 Rx transdermal patch albuterol sulfate 90 mcg/actuation 2 puff inhalation Q6H PRN 06/06/23 03/18/24 Unknown Rx aerosol inhaler bronchospasm #8.5 grams fluticasone 500 mcg-salmeterol 50 1 inh inhalation BID #180 ea 06/06/23 03/18/24 03/19/24 Rx mcg/dose blistr powdr for inhalation (Advair Diskus) levothyroxine 50 mcg tablet 50 mcg PO DAILY #90 tabs 06/06/23 03/18/24 03/19/24 Rx (Synthroid) montelukast 10 mg tablet 10 mg PO DAILY #90 tabs 06/06/23 03/18/24 03/19/24 Rx oxycodone-acetaminophen 5 mg-325 1 tab PO Q6H PRN pain 7 days #28 06/06/23 03/18/24 02/01/24 Rx mg tablet tabs finasteride 5 mg tablet 5 mg PO DAILY hair loss 10/23/23 03/18/24 03/19/24 History prednisone 20 mg tablet See Rx Instructions PO .COMPLEX 11/21/23 03/18/24 Unknown Rx PRN joint pain flare #30 tabs tofacitinib 5 mg tablet (Xeljanz) 5 mg PO BID #60 tabs 11/21/23 03/18/24 03/19/24 Rx hydroxychloroquine 200 mg tablet 200 mg PO BID #180 tabs 12/18/23 03/18/24 03/19/24 Rx hydrocodone 5 mg-acetaminophen 325 1 tab PO Q6H PRN pain #20 tabs 02/01/24 03/18/24 Unknown Rx mg tablet polyethylene glycol 3350 17 17 g PO DAILY 1 month #510 grams 02/19/24 03/18/24 03/19/24 Rx gram/dose oral powder (Miralax) ondansetron 8 mg disintegrating 8 mg PO Q6H PRN Nausea And Vomiting 03/18/24 03/18/24 Unknown History tablet Allergies Allergy/AdvReac Type Severity Reaction Status Date / Time adalimumab-adaz Allergy Unknown low BP Verified 03/18/24 10:04 [From Hyrimoz] upadacitinib [From Rinvoq] Allergy Unknown Constipatio Verified 03/18/24 10:04 n cephalexin [From Keflex] Allergy Unknown Verified 03/18/24 10:04 erythromycin base Allergy ALGY-Anaphy Verified 03/18/24 10:04 laxis Penicillins Allergy ALGY-Hives Verified 03/18/24 10:04 Sulfa (Sulfonamide Allergy ALGY-Hives Verified 03/18/24 10:04 Antibiotics) venlafaxine [From Effexor] Allergy Unknown Verified 03/18/24 10:04 Current Medications Generic Name Dose Route Start Last Admin Trade Name Freq PRN Reason Stop Dose Admin Sodium Chloride 1,000 mls @ 30 mls/hr 03/20/24 09:45 03/20/24 09:52 Sodium Chloride 0.9% IV 03/21/24 09:44 30 mls/hr .Q24H LIS Administration PFSH Anesthesia Medical History (Updated 02/19/24 @ 09:46 by Asher Sadler DO) Family history of Crohn's disease Immunization counseling Seropositive rheumatoid arthritis of multiple sites Alopecia Joint pain High risk medication use Hypothyroid Rheumatoid arthritis Asthma Fibromyalgia Surgical History (Updated 02/19/24 @ 09:46 by Asher Sadler DO) Hx of colonoscopy age 51 Hx of appendectomy Hx of eye surgery History of ankle surgery Family History Father Cancer lung Mother Cancer lung Diabetes Grandmother Cancer breast Other Hypertension Lupus Denies family history of Rheumatoid arthritis Clotting disorder Anesthesia complication Bleeding disorder Family history of premature coronary artery disease Lung disease Stroke Social History Smoking and tobacco/nicotine status: never used tobacco/nicotine Second hand smoke exposure: No Alcohol intake: current Alcohol intake frequency: holidays/special occasions only Substance/Drug Use: never Lives independently: Yes Household members: spouse Marital status: Current occupational status: employed Current gender identity: Female Special harrison needs: No Agree to transfusion: Yes Data Anesthesia Cardiac Studies: No Data to Display
--- NOTE | 2024-03-20 10:12 | W.PM.OPSUD ---
Surgery/Procedure H&P Update DATE OF PROCEDURE: March 20, 2024 DATE H&P PERFORMED: 02/19/24 H&P UPDATE INFORMATION: I have reviewed H&P completed within last 30 days, I have examined patient prior to procedure and No changes to prior documentation PREOP DIAGNOSIS: screening PLANNED PROCEDURE: Operation Date: 03/20/24 10:30 Proposed Procedures p EGD 79838, 65067, G0105, K92.2, K59.04, R14.0, R10.13(Not Applicable) - DO karen Porter Colonoscopy(Not Applicable) - Asher Sadler DO
[2024-03-20 10:29] VITALS: BP 108/64; PULSE 90; RESP 16; TEMP 36.3; O2SAT 99
[2024-03-20 10:40] VITALS: BP 112/63; PULSE 92; RESP 16; O2SAT 96
[2024-03-20 10:54] VITALS: BP 115/58; PULSE 67; RESP 16; O2SAT 97
--- NOTE | 2024-03-20 11:05 | ANE.PACU2 ---
Inpatient post-anesthesia follow up: Airway intact: Yes Vital signs: Temperature 97.4 F Pulse Rate 67 Respiratory Rate 16 Blood Pressure 115/58 Pulse Oximetry 97 Oxygen Delivery Me thod Room Air Oxygen Flow Rate Fraction of Inspir ed Oxygen Hydration adequate: Yes Nausea and vomiting: No Pain level: 1 Mental status: Baseline
[2024-03-20 13:38] LABS: C.Diff PCR (Lab) POSITIVE (Negative)
[2024-03-20 21:09] LABS: Clostridioides Difficile Toxin NEGATIVE (Negative)
== END 2024-03-20 11:09 | disposition home or self-care (01) ==
PROVIDERS: PCP Nurse Practitioner Family; Visit Provider Surgery
PROC: 0DJ08ZZ Inspection of Upper Intestinal Tract, Via Natural or Artificial Opening Endoscopic (ICD-10-PCS; CPT 43235; principal; 2024-03-20 10:30)
PROC: 0DJD8ZZ Inspection of Lower Intestinal Tract, Via Natural or Artificial Opening Endoscopic (ICD-10-PCS; CPT 45378; 2024-03-20 10:30)
DX: K92.2 Gastrointestinal hemorrhage, unspecified (principal); K57.30 Diverticulosis of large intestine without perforation or abscess without bleeding; K44.9 Diaphragmatic hernia without obstruction or gangrene; K59.04 Chronic idiopathic constipation; R14.0 Abdominal distension (gaseous); R10.13 Epigastric pain; J45.909 Unspecified asthma, uncomplicated; E03.9 Hypothyroidism, unspecified; M79.7 Fibromyalgia
CPT/HCPCS: 43239; 45380; 82274; 83630; 87045; 87177; 87209; 87427; 87449; 87493; 88305; J2704; J7030

== ENCOUNTER 2024-04-03 07:38 | Outpatient (CLI) | payer BC, SELFPAY ==
--- NOTE | 2024-04-03 08:00 | NM_ITS ---
WS: [id number] NUCLEAR MEDICINE HIDA SCAN WITH GALLBLADDER EJECTION FRACTION HISTORY: epigastric pain COMPARISON: Ultrasound abdomen 03/14/2024 TECHNIQUE: The patient was intravenously injected with 7.6 mCi of TC99m Mebrofenin. Immediate imaging over the right upper quadrant was followed by 5 minute image and additional images for a total of 60 minutes. Normal uptake of radiotracer throughout the liver. Activity identified in the gallbladder at 10 minutes and well distended by 60 minutes. Activity in the proximal small bowel was seen by 60 minutes. Good washout of the radiotracer from the liver by 60 minutes. The patient then drank 8 ounces of Ensure Plus. Ejection fraction at 60 minutes was 81%. Normal GB ej ection fraction is 35-75%. Post fatty meal symptoms: None. NM/NM hepatobiliary w phar* [id number] IMPRESSION: 1. Normal HIDA scan. 2. Normal gallbladder ejection fraction.
== END 2024-04-03 07:39 | disposition home or self-care (01) ==
PROVIDERS: PCP Nurse Practitioner Family; Visit Provider Surgery
DX: R10.13 Epigastric pain (principal); R14.0 Abdominal distension (gaseous)
CPT/HCPCS: 78227; A9537

== ENCOUNTER → 2024-04-09 08:28 | Outpatient (BNVA) | payer BC, SELFPAY | PROVIDERS: PCP Nurse Practitioner Family; Visit Provider Nurse Practitioner Women's Health | DX: N85.2 Hypertrophy of uterus (principal) | CPT/HCPCS: 76830 ==

== ENCOUNTER 2024-04-11 10:29 | Day surgery (SDC) | payer BC, SELFPAY ==
[2024-04-11] VITALS (11 sets, daily range): BP systolic 124–143; BP diastolic 55–64; PULSE 63–87; RESP 16–22; TEMP 36.3–36.7; O2SAT 96–100; BMI 24.3
--- NOTE | 2024-04-11 10:48 | W.PM.OPSUD ---
Surgery/Procedure H&P Update DATE OF PROCEDURE: April 11, 2024 DATE H&P PERFORMED: 04/08/24 H&P UPDATE INFORMATION: I have reviewed H&P completed within last 30 days, I have examined patient prior to procedure and No changes to prior documentation PLANNED PROCEDURE: Operation Date: 04/11/24 12:25 Proposed Procedures p Laparoscopic Cholecystectomy 10520, K82.8(Not Applicable) - Asher Sadler DO
--- NOTE | 2024-04-11 10:55 | ANES.PREANE2 ---
Pre-Anesthetic Assessment Height/Weight: Height 1.6 m Weight 62.142 kg Temp Pulse Resp BP Pulse Ox O2 Del Method 98.0 F 68 17 142/63 96 Room Air 04/11/24 10:46 04/11/24 10:46 04/11/24 10:46 04/11/24 10:46 04/11/24 10:46 04/11/24 10:49 Operation Date: 04/11/24 12:25 Proposed Procedures p Laparoscopic Cholecystectomy 05096, K82.8(Not Applicable) - Asher Sadler DO Familial anesthetic complications: None Was Beta Henri taken within 24 hours: N/A Was Clonidine taken within 24 hours: N/A Last intake: Intake (black coffee 0700) Last Liquid Date 04/11/24 Last Liquid Time 07:00 Last Solid Date 04/10/24 Last Solid Time 18:30 Social No alcohol and No tobacco Exam alert, oriented x 3, clear to auscultation bilaterally and regular rate & rhythm Airway Mallampati: Class I Dentition: other (missing) Pulmonary Asthma CV/HEM Hypertension Metabolic Thyroid Disease Anesthetic Plan ASA status: 2 Anesthesia: General Risk of > 500 ml blood loss (7ml/kg in children): No Medications/Allergies Home Medications Medication Instructions Recorded Confirmed Last Taken Type estradiol 0.05 mg/24 hr weekly 1 patch transdermal .weekly #12 ea 05/26/23 04/11/24 04/10/24 Rx transdermal patch albuterol sulfate 90 mcg/actuation 2 puff inhalation Q6H PRN 06/06/23 04/11/24 04/10/24 Rx aerosol inhaler bronchospasm #8.5 grams fluticasone 500 mcg-salmeterol 50 1 inh inhalation BID #180 ea 06/06/23 04/11/24 04/10/24 Rx mcg/dose blistr powdr for inhalation (Advair Diskus) levothyroxine 50 mcg tablet 50 mcg PO DAILY #90 tabs 06/06/23 04/11/24 04/10/24 Rx (Synthroid) montelukast 10 mg tablet 10 mg PO DAILY #90 tabs 06/06/23 04/11/24 04/10/24 Rx finasteride 5 mg tablet 5 mg PO DAILY hair loss 10/23/23 04/11/24 04/10/24 History prednisone 20 mg tablet See Rx Instructions PO .COMPLEX 11/21/23 04/11/24 Unknown Rx PRN joint pain flare #30 tabs tofacitinib 5 mg tablet (Xeljanz) 5 mg PO BID #60 tabs 11/21/23 04/11/24 04/10/24 Rx hydroxychloroquine 200 mg tablet 200 mg PO BID #180 tabs 12/18/23 04/11/24 04/10/24 Rx hydrocodone 5 mg-acetaminophen 325 1 tab PO Q6H PRN pain #20 tabs 02/01/24 04/11/24 Unknown Rx mg tablet polyethylene glycol 3350 17 17 g PO DAILY 1 month #510 grams 02/19/24 04/11/24 03/19/24 Rx gram/dose oral powder (Miralax) ondansetron 8 mg disintegrating 8 mg PO Q6H PRN Nausea And Vomiting 03/18/24 04/11/24 Unknown History tablet Allergies Allergy/AdvReac Type Severity Reaction Status Date / Time adalimumab-adaz Allergy Unknown low BP Verified 04/11/24 10:40 [From Hyrimoz] upadacitinib [From Rinvoq] Allergy Unknown Constipatio Verified 04/11/24 10:40 n cephalexin [From Keflex] Allergy Unknown Verified 04/11/24 10:40 erythromycin base Allergy ALGY-Anaphy Verified 04/11/24 10:40 laxis Penicillins Allergy ALGY-Hives Verified 04/11/24 10:40 Sulfa (Sulfonamide Allergy ALGY-Hives Verified 04/11/24 10:40 Antibiotics) venlafaxine [From Effexor] Allergy Unknown Verified 04/11/24 10:40 PFSH Anesthesia Medical History C. difficile colitis Family history of Crohn's disease Immunization counseling Seropositive rheumatoid arthritis of multiple sites Alopecia Joint pain High risk medication use Hypothyroid Rheumatoid arthritis Asthma Fibromyalgia Surgical History Hx of colonoscopy age 51 Hx of appendectomy Hx of eye surgery History of ankle surgery Family History Father Cancer lung Mother Cancer lung Diabetes Grandmother Cancer breast Grandfather Breast cancer Sister Hypertension Other Lupus Denies family history of Rheumatoid arthritis Colon cancer Ovarian cancer Prostate cancer Clotting disorder Heart disease Hyperlipidemia Anesthesia complication Bleeding disorder Family history of premature coronary artery disease Lung disease Uterine cancer Thyroid disease Stroke Social History Smoking and tobacco/nicotine status: never used tobacco/nicotine Second hand smoke exposure: No Alcohol intake: current Alcohol intake frequency: holidays/special occasions only Substance/Drug Use: never Lives independently: Yes Household members: spouse Marital status: Current occupational status: employed Current gender identity: Female Special harrison needs: No Agree to transfusion: Yes Data Anesthesia Cardiac Studies: No Data to Display
[2024-04-11] MEDS: sodium chloride 0.9% 1,000 ML 30 ML IV (11:03)
[2024-04-11] MEDS: vancomycin 1,500 MG/300 ML PIGGYBACK 200 MG IV (11:05)
[2024-04-11] MEDS: lidocaine-epi 2% PF 1:200,000 20 mL SDV XX (11:41)
--- NOTE | 2024-04-11 11:43 | ANES.PROC ---
Anesthesia Procedures Procedure/Date: 04/11/24 Endotracheal Intubation Procedure Narrative: A time out was performed. My hands were washed immediately prior to the procedure. I wore a surgical cap, mask with protective eyewear, gown and gloves throughout the procedure. The patient was placed on a traffic monitor specialist including continuous pulse oximetry. The patient received Midazolam, Propofol, Lidocaine, & Fentanyl for induction and Rocuronium for adequate paralysis. Please see the Anesthesiology staff notes for exact details on dosing. Using a MAC 3 laryngoscope and a size 7cm endotracheal tube with stylet, the patient was intubated on the first attempt. The stylet was removed and cuff balloon was inflated. Appropriate endotracheal tube position was confirmed by direct visualization of vocal cord passage, fogging of the tube, CO2 colormetric indicator and symmetric breath sounds. The tube was secured at 21 cm at the lips. Other Information: Attending Anesthesiologist: Dr. Espinal.
--- NOTE | 2024-04-11 11:48 | ANES.PROC ---
Anesthesia Procedures Procedure/Date: 04/11/24 Endotracheal Intubation Procedure Narrative: A time out was performed. My hands were washed immediately prior to the procedure. I wore a surgical cap, mask with protective eyewear, gown and gloves throughout the procedure. The patient was placed on a manager trade marketing including continuous pulse oximetry. The patient received Midazolam, Fentanyl, Lidocaine and Propofol for induction and Rocuronium for adequate paralysis. Please see the Anesthesiology Staff member's documentation for the exact dosing. Using a MAC 3 laryngoscope and a [id number] endotracheal tube with stylet, the patient was intubated on the first attempt. The stylet was removed and cuff balloon was inflated. Appropriate endotracheal tube position was confirmed by direct visualization of vocal cord passage, fogging of the tube, CO2 colormetric indicator and symmetric breath sounds. The tube was secured at 21 cm at the lips. Other Information: Attending Anesthesiologist: Dr. Espinal
--- NOTE | 2024-04-11 11:52 | P.OP_ITS ---
Operative Report Date of procedure: April 11, 2024 Surgeon: Asher Sadler DO Brief History: This is a very pleasant 58-year-old female who presented my office with abdominal pain. She was diagnosed with biliary dyskinesia. Laparoscopic cholecystectomy is indicated. The risks and benefits were explained and documented. Procedure: Preoperative diagnosis: Biliary dyskinesia Postoperative diagnosis: Same Procedure performed: Laparoscopic cholecystectomy Surgeon: Dr. Asher Sadler DO Estimated blood loss: 5 mL Specimens: Gallbladder to pathology Complications: None apparent Description of procedure: Patient was wheeled into the operative room and placed on the OR table in a supine position. Abdomen was inspected prepped and draped in usual sterile fashion. Time-out was performed and all present were in agreement. A 15 blade scalp was used to make a stab incision in the left upper quadrant and intra- abdominal insufflation was achieved using a Veress needle. After localizing the tissue incisions were made and a 5 millimeter trocar was placed into the umbilicus as well as 2 in the right upper quadrant. A 12 millimeter trocar was placed in the epigastrium. Gallbladder was grasped and elevated. The triangle of Calot was carefully dissected using blunt dissection and electrocautery until the triangle of Calot clearly identified. The cystic duct was clipped proximally and double clipped distally. The duct was then ligated proximally. The cystic artery was doubly clipped and ligated. The gallbladder was then removed from the liver bed using electrocautery. The gallbladder was removed from the abdomen using an Endo-Catch bag through the epigastric incision. The liver bed was inspected and no bleeding was seen. The abdomen was irrigated and suctioned. All ports removed. Skin was washed and dried. Incisions were closed with 4-0 Monocryl in a subcuticular interrupted fashion. Skin glue was applied. Patient tolerated the procedure well.
[2024-04-11] MEDS: ondansetron 2 mg/ML SDV 2 mL 4 MG IVP (13:06)
[2024-04-11] MEDS: HYDROcodone-acetaminophen 7.5-325 mg Tablet 1 TAB PO (13:20)
--- NOTE | 2024-04-11 13:50 | ANE.PACU2 ---
Inpatient post-anesthesia follow up: Airway intact: Yes Vital signs: Temperature 97.3 F Pulse Rate 65 Respiratory Rate 17 Blood Pressure 142/61 Pulse Oximetry 98 Oxygen Delivery Me thod Room Air Oxygen Flow Rate 6 Fraction of Inspir ed Oxygen Hydration adequate: Yes Nausea and vomiting: No Pain level: 1 Mental status: Baseline
== END 2024-04-11 13:54 | disposition home or self-care (01) ==
PROVIDERS: PCP Nurse Practitioner Family; Visit Provider Surgery
PROC: 0FT44ZZ Resection of Gallbladder, Percutaneous Endoscopic Approach (ICD-10-PCS; CPT 47562; principal; 2024-04-11 12:25)
DX: K80.10 Calculus of gallbladder with chronic cholecystitis without obstruction (principal); J45.909 Unspecified asthma, uncomplicated; I10 Essential (primary) hypertension; E03.9 Hypothyroidism, unspecified; M06.9 Rheumatoid arthritis, unspecified; M79.7 Fibromyalgia
CPT/HCPCS: 47562; 88304; J1100; J2250; J2405; J2704; J3010; J3370; J3490; J7030

== ENCOUNTER → 2024-06-04 09:18 | Outpatient (BNVA) | payer BC, SELFPAY | PROVIDERS: Family Provider Nurse Practitioner Family; PCP Nurse Practitioner Family; Visit Provider Nurse Practitioner Family | DX: E03.8 Other specified hypothyroidism (principal) | CPT/HCPCS: 80053; 80061; 84443; 85025 ==

== ENCOUNTER → 2024-06-25 08:28 | Outpatient (BNVA) | payer BC, SELFPAY | PROVIDERS: PCP Nurse Practitioner Family; Visit Provider Nurse Practitioner Family | DX: R79.89 Other specified abnormal findings of blood chemistry (principal) | CPT/HCPCS: 80053 ==

== ENCOUNTER 2024-09-04 16:37 | Emergency (ER) | payer BC, SELFPAY ==
[2024-09-04 16:50] VITALS: BP 151/76; PULSE 69; RESP 18; TEMP 36.8; O2SAT 97; BMI 24.7
--- NOTE | 2024-09-04 17:01 | XRR_ITS ---
PROCEDURE INFORMATION: Exam: XR Right Hip Exam date and time: 09/04/2024 6:39 PM Age: 58 years old Clinical indication: Hip pain; Right hip; Additional info: Fall TECHNIQUE: Imaging protocol: Radiologic exam of the right hip. Views: 1 view hip with pelvis when performed. COMPARISON: CT abdomen pelvis w con* [id number] 02/01/2024 10:47 AM FINDINGS: Bones/joints: Lumbar spine degenerative disc space disease. Soft tissues: Unremarkable. XR/XR hip RT 2-3V wo/w pel* [id number] IMPRESSION: No acute findings.
--- NOTE | 2024-09-04 17:01 | XRR_ITS ---
PROCEDURE INFORMATION: Exam: XR Right Knee Exam date and time: 09/04/2024 6:41 PM Age: 58 years old Clinical indication: Injury or trauma; Fall; Blunt trauma; Knee; Right TECHNIQUE: Imaging protocol: Radiologic exam of the right knee. Views: 3 views. COMPARISON: [place] [id number] ORTH 10/23/2023 9:09 AM FINDINGS: Bones/joints: Normal. Soft tissues: Normal. XR/XR knee RT 3V* [id number] IMPRESSION: No acute findings.
--- NOTE | 2024-09-04 18:41 | ED_ITS ---
HPI - Extremity Problem General: Chief complaint: Extremity Injury, Lower Stated complaint: pain in right leg from hip to knee Time Seen by Provider: 09/04/24 18:41 History of Present Illness: 58-year-old female with a history of rhe umatoid arthritis, hypothyroidism and asthma who presents emergency room with a right knee injury. Says she has been having hip pain for a couple of months now and then fell and is having pain in her knee. She has a limited flexion of her knee. Secondary to pain and she has some swelling. Neurovascularly intact. No obvious deformities. Related Data Home Medications ?Medication ?Instructions ?Recorded ?Confirmed finasteride 5 mg tablet 5 mg PO DAILY hair loss 05/1707/22/24 Previous Rx's ?Medication ?Instructions ?Recorded progesterone micronized 100 mg 100 mg PO BEDTIME #90 c aps 04/15/24 capsule albuterol sulfate 90 mcg/actuation 2 puff inhalation Q 6H PRN 06/04/24 aerosol inhaler bronchospasm #8.5 grams fluticasone 500 mcg-salmeterol 50 1 inh inhalation BID #60 ea 06/04/24 mcg/dose blistr powdr for inhalation (Wixela Inhub) levothyroxine 50 mcg tablet 50 mcg PO DAILY #90 tabs 0 06/04/24 (Synthroid) montelukast 10 mg tablet 10 mg PO DAILY #90 tabs 05/25 05/18 hydroxychloroquine 200 mg tablet 200 mg PO BID #180 ta bs 07/22/24 prednisone 20 mg tablet See Rx Instructions PO .COMP MICHELLE 07/22/24 PRN joint pain flare #30 tabs tofacitinib 5 mg tablet (Xeljanz) 5 mg PO BID #60 tabs 07/22/24 estradiol 0.075 mg/24 hr weekly See Rx Instructions .R oute 08/19/24 transdermal patch .COMPLEX #12 patches diclofenac sodium 50 mg 50 mg PO BID PRN pain #14 ta bs 09/04/24 tablet,delayed release prednisone 20 mg tablet 60 mg (3 x 20 mg) PO DAILY 5 days 09/04/24 #15 tabs tramadol 50 mg tablet 50 mg PO Q8H PRN pain #20 ta bs 09/04/24 Allergies Allergy/AdvReac Type Severity Reaction Status Date / Time adalimumab-adaz (From Allergy Unknown low BP Verified 09/04/24 16:54 Hyrimoz) upadacitinib (From Rinvoq) Allergy Unknown Constipatio Verified 09/04/24 16:54 n cephalexin (From Keflex) Allergy Unknown Verified 09/04/24 16:54 erythromycin base Allergy ALGY-Anaphy Verified 09/04/24 16:54 laxis Penicillins Allergy ALGY-Hives Verified 09/04/24 16:54 Sulfa (Sulfonamide Allergy ALGY-Hives Verified 09/04/24 16:54 Antibiotics) venlafaxine (From Effexor) Allergy Unknown Verified 09/04/24 16:54 Review of Systems Narrative: Constitutional symptoms: Negative except as documented in HPI. Skin symptoms: Negative except as documented in HPI. Eye symptoms: Negative except as documented in HPI. ENMT symptoms: Negative except as documented in HPI. Respiratory symptoms: Negative except as documented in HPI. Cardiovascular symptoms: Negative except as documented in HPI. Gastrointestinal symptoms: Negative except as documented in HPI. Genitourinary symptoms: Negative except as documented in HPI. Musculoskeletal symptoms: Negative except as documented in HPI. Neurologic symptoms: Negative except as documented in HPI. Psychiatric symptoms: Negative except as documented in HPI. Endocrine symptoms: Negative except as documented in HPI. PFSH ED PFSH: Medical History C. difficile colitis Family history of Crohn's disease Immunization counseling Seropositive rheumatoid arthritis of multiple sites Alopecia Joint pain High risk medication use Hypothyroid Rheumatoid arthritis Asthma Fibromyalgia Surgical History History of esophagogastroduodenoscopy (EGD) Hx laparoscopic cholecystectomy Hx of colonoscopy age 51 Hx of appendectomy Hx of eye surgery History of ankle surgery Family History Father Cancer lung Mother Cancer lung Diabetes Grandmother Cancer breast Grandfather Breast cancer Sister Hypertension Other Lupus Denies family history of Rheumatoid arthritis Colon cancer Ovarian cancer Prostate cancer Clotting disorder Heart disease Hyperlipidemia Anesthesia complication Bleeding disorder Family history of premature coronary artery disease Lung disease Uterine cancer Thyroid disease Stroke Social History Smoking and tobacco/nicotine status: never used tobacco/nicotine Second hand smoke exposure: No Alcohol intake: current Alcohol intake frequency: holidays/special occasions only Substance/Drug Use: never Lives independently: Yes Household members: spouse Marital status: Current occupational status: employed Current gender identity: Female Special harrison needs: No Agree to transfusion: Yes Physical Exam Narrative: EXAM NARRATIVE: General: Alert, no acute distress. Skin: warm and dry Head: Normocephalic Neck: Trachea midline Eye: Extraocular movements are intact. Ears, nose, mouth and throat: Oral mucosa moist Respiratory: Respirations are non-labored Musculoskeletal: Limited flexion of the right knee. Small abrasion. Mild effusion. Neurovasculary intact. No deformities. Gastrointestinal: Abdomen does not appear distended Neurological: Alert and oriented, No focal neurological deficit observed. Psychiatric: Cooperative, appropriate mood & affect. Course Vital Signs: Vital signs: Vital Signs Temperature 98.3 F 09/04/24 16:50 Pulse Rate 69 09/04/24 16:50 Respiratory Rate 18 09/04/24 16:50 Blood Pressure 151/76 09/04/24 16:50 Pulse Oximetry 97 09/04/24 16:50 Oxygen Delivery Me thod Room Air 09/04/24 16:50 MDM - Extremity (Nontraumatic) Medical Decision Making X-ray of the right hip and pelvis: No fractures. No deformities. No dislocations. Films were interpreted by myself the emergency room provider and pending final radiology review. X-ray of the right knee: No fractures. No deformities. No dislocations. Films were interpreted by myself the emergency room provider and pending final radiology review. Assessment and plan: Hip pain Knee injury ? IM Toradol, IM Decadron and p.o. [place]. - Discharged home - Discussed plan with patient. Answered any questions. - Evaluation and treatment of this problem were appropriate in the emergency setting. XR interpretation done by ED provider, pending radiology final review Discharge Plan Discharge Patient Disposition: Home Clinical Impression: Right knee injury, Hip pain Condition: Stable Prescriptions: New prednisone 20 mg tablet 60 mg PO DAILY 5 Days Qty: 15 0RF tramadol 50 mg tablet 50 mg PO Q8H PRN (Reason: pain) Qty: 20 0RF diclofenac sodium 50 mg tablet,delayed release (DR/EC) 50 mg PO BID PRN (Reason: pain) Qty: 14 0RF No Action finasteride 5 mg tablet 5 mg PO DAILY hydroxychloroquine 200 mg tablet 200 mg PO BID Qty: 180 1RF Xeljanz 5 mg tablet 5 mg PO BID Qty: 60 5RF prednisone 20 mg tablet See Rx Instructions PO .COMPLEX PRN (Reason: joint pain flare) Qty: 30 1RF Rx Instructions: take 1 or 2 tab daily for 3-7 days as needed for arthritis flare PO PRN; progesterone micronized 100 mg capsule 100 mg PO BEDTIME Qty: 90 0RF Rx Instructions: take once nightly at bedtime levothyroxine [Synthroid] 50 mcg tablet 50 mcg PO DAILY Qty: 90 3RF albuterol sulfate 90 mcg/actuation HFA aerosol inhaler 2 puff INHALATION Q6H PRN (Reason: bronchospasm) Qty: 8.5 5RF montelukast 10 mg tablet 10 mg PO DAILY Qty: 90 3RF fluticasone propion-salmeterol [Wixela Inhub] 500-50 mcg/dose blister with device 1 inh inhalation BID Qty: 60 11RF estradiol 0.075 mg/24 hr patch weekly See Rx Instructions .ROUTE .COMPLEX Qty: 12 0RF Dose Instruction: APPLY 1 PATCH TOPICALLY ONCE WEEKLY Rx Instructions: APPLY 1 PATCH TOPICALLY ONCE WEEKLY Discharge Orders: Discharge ED (Routine); Ordered 09/04/24 Ordered By: Dafne Coats Referrals: Michael Barnard DO [Physician, Orthopedics] Referral Note: Please call for an orthopedic appointment if pain persists. Bridgette Stoll FNP [Primary Care Provider, Family Practice] Discharge Diet: Usual diet Discharge Activity: Increase activity as tolerated Patient Instructions: P.R.I.C.E. Treatment (ED), Opioid Safety, Pain Management Activity Restrictions/Additional Instructions: Thank you for choosing [facility] for your healthcare needs today. You have been screened and evaluated and felt safe for discharge. Health conditions do change or evolve sometimes and as such it is important that you follow up with your Primary Doctor to be re checked, 3-5 days is a general good time frame for follow up. You are always welcome to return to the ED for re assessment if your symptoms are worsening or you have new concerns Print Language: Ethiopian Coding Level of Care Code ED Parking Lot Laborer for Jesús Valente
[2024-09-04] MEDS: HYDROcodone-acetaminophen 10-325 mg Tablet 1 TAB PO (18:59)
[2024-09-04] MEDS: ketorolac 60 mg/2 mL INJ IM (18:59)
[2024-09-04] MEDS: dexamethasone 10 mg/mL INJ IM (18:59)
[2024-09-04 19:29] VITALS: BP 120/96; PULSE 63; O2SAT 98
== END 2024-09-04 19:30 | disposition home or self-care (01) ==
PROVIDERS: Emergency Provider Emergency Medicine; PCP Nurse Practitioner Family
DX: S89.91XA Unspecified injury of right lower leg, initial encounter (principal); M25.551 Pain in right hip; X58.XXXA Exposure to other specified factors, initial encounter
CPT/HCPCS: 73502; 73562; 96372; 99284; J1100; J1885; J9999

== ENCOUNTER → 2024-09-10 08:46 | Outpatient (BNVA) | payer BC, SELFPAY | PROVIDERS: PCP Nurse Practitioner Family; Visit Provider Orthopaedic Surgery | DX: M25.561 Pain in right knee (principal); M25.551 Pain in right hip; M54.9 Dorsalgia, unspecified | CPT/HCPCS: 72110; 73502; 73560; 73565 ==

== ENCOUNTER 2024-09-22 05:00 | Outpatient (RCR) | payer BC, SELFPAY | END 2024-10-21 23:59 | disposition home or self-care (01) | LOC: TPT 05:00 | PROVIDERS: Visit Provider Orthopaedic Surgery | DX: M54.50 Low back pain, unspecified (principal); M25.551 Pain in right hip; M25.561 Pain in right knee; G89.29 Other chronic pain | CPT/HCPCS: 97110 ==

== ENCOUNTER 2024-10-22 05:00 | Outpatient (RCR) | payer BC, SELFPAY | END 2024-11-21 23:59 | disposition home or self-care (01) | LOC: TPT 05:00 | PROVIDERS: Visit Provider Orthopaedic Surgery | DX: G89.29 Other chronic pain (principal); M54.50 Low back pain, unspecified; M25.551 Pain in right hip; M25.561 Pain in right knee | CPT/HCPCS: 97110 ==

== ENCOUNTER 2024-11-22 05:00 | Outpatient (RCR) | payer BC, SELFPAY | END 2024-12-22 23:59 | disposition home or self-care (01) | LOC: TPT 05:00 | PROVIDERS: Visit Provider Orthopaedic Surgery | DX: M54.50 Low back pain, unspecified (principal); M25.551 Pain in right hip; M25.561 Pain in right knee; G89.29 Other chronic pain | CPT/HCPCS: 97110 ==

== ENCOUNTER → 2024-12-19 09:46 | Outpatient (BNVA) | payer BC, SELFPAY | PROVIDERS: PCP Nurse Practitioner Family; Visit Provider Internal Medicine Rheumatology | DX: Z79.899 Other long term (current) drug therapy (principal) | CPT/HCPCS: 80076; 82565; 85025; 85651; 86140 ==

== ENCOUNTER 2025-01-22 08:00 | Outpatient (CLI) | payer BC, SELFPAY ==
--- NOTE | 2025-01-22 08:45 | MR_ITS ---
WS: [id number] MRI LUMBAR SPINE NONCONTRAST TECHNIQUE: Sagittal T1, T2 and STIR imaging. Axial T1 and T2 imaging. CLINICAL INFORMATION: low back pain COMPARISON: None. FINDINGS: Mild lumbar curve. No acute compression. Disc desiccation worse at L4-L5 and L5- S1. Endplate degenerative changes at L4-5. L1-L2: Mild annular bulging. Mild facet arthropathy. L2-L3: Mild annular bulging with a RIGHT paracentral protrusion and small annular tear. Impingement of the RIGHT subarticular recess. Mild facet arthropathy. Foramen are patent. L3-L4: Mild annular bulging. Impingement RIGHT subarticular recess and traversing RIGHT L4 nerve root. Mild RIGHT L3-4 foraminal narrowing. L4-L5: Mild disc bulging with impingement on the LEFT greater than RIGHT subarticular recess and traversing L5 nerve roots. Mild LEFT foraminal narrowing with LEFT eccentric disc osteophyte complex. Moderate facet arthropathy. L5-S1: Shallow broad-based central protrusion. Slight contact of the S1 nerve roots. Moderate facet arthropathy. Foramen are patent. Visualized pelvic bony structures: Normal. Paravertebral soft tissues: Normal. Retroverted and retroflexed uterus. MR/MR lumbar spine wo con* [id number] IMPRESSION: 1. Mild lumbar curve. No acute compression. Disc base narrowing worse at L4-5. 2. Disc bulging L4-5 with impingement on the traversing LEFT greater than RIGH T L5 nerve roots in the subarticular recess. 3. LEFT eccentric disc osteophyte ridging L4-5 with mild LEFT foraminal narrow ing. 4. Broad-based shallow central protrusion L5-S1 with slight contact of the S1 nerve roots. 5. Moderate facet arthropathy L4-L5 and L5-S1. 6. Tiny RIGHT paracentral protrusion L2-3 with a small annular tear. Impingeme nt RIGHT subarticular recess. 7. Impingement RIGHT subarticular recess L3-4
== END 2025-01-22 08:01 | disposition home or self-care (01) ==
LOC: RAD 08:01
PROVIDERS: PCP Nurse Practitioner Family; Visit Provider Orthopaedic Surgery
DX: M47.816 Spondylosis without myelopathy or radiculopathy, lumbar region (principal); M51.26 Other intervertebral disc displacement, lumbar region
CPT/HCPCS: 72148

== ENCOUNTER → 2025-01-29 14:42 | Outpatient (BNVA) | payer BC, SELFPAY | PROVIDERS: PCP Nurse Practitioner Family; Visit Provider Student in an Organized Health Care Education/Training Program | DX: M25.561 Pain in right knee (principal); M25.562 Pain in left knee | CPT/HCPCS: 73560; 73565 ==

== ENCOUNTER 2025-02-20 14:20 | Outpatient (CLI) | payer BC, SELFPAY ==
--- NOTE | 2025-02-20 14:30 | MR_ITS ---
WS: [id number] MRI RIGHT KNEE NONCONTRAST TECHNIQUE: Axial PD, coronal PD fat sat, coronal PD, sagittal PD, and sagittal PD fat-sat images obtained. CLINICAL INFORMATION: M25.561 - Pain in right knee COMPARISON: None. FINDINGS: Distal quadriceps and patella tendons are intact. ACL and PCL appear intact. No acute appearing meniscal tears. Mild chronic thinning of the medial meniscus. Normal bone marrow signal in the femoral condyles and tibial plateau. Grade III chondromalacia patella with chondral fissuring. Medial and lateral patellar retinacula appear intact. Normal lateral collateral ligament. Normal medial collateral ligament. Normal popliteal fossa. MR/MR knee RT wo con* [id number] IMPRESSION: 1. ACL and PCL appear intact. 2. No acute appearing meniscal tears. Mild chronic thinning of the medial meni scus. 3. Grade III chondromalacia patella. 4. Medial and lateral collateral ligaments appear intact. 5. No other acute findings. Outbridge grading: grade III: partial-thickness cartilage loss with focal ulcer ation
== END 2025-02-20 14:21 | disposition home or self-care (01) ==
LOC: RAD 14:20
PROVIDERS: PCP Nurse Practitioner Family; Visit Provider Student in an Organized Health Care Education/Training Program
DX: M22.41 Chondromalacia patellae, right knee (principal); S89.91XA Unspecified injury of right lower leg, initial encounter; X58.XXXA Exposure to other specified factors, initial encounter
CPT/HCPCS: 73721

== ENCOUNTER 2025-02-25 15:23 | Outpatient (CLI) | payer BC, SELFPAY | END 2025-02-25 15:24 | disposition home or self-care (01) | LOC: SPT 15:23 | PROVIDERS: PCP Nurse Practitioner Family; Visit Provider Student in an Organized Health Care Education/Training Program | DX: Z46.89 Encounter for fitting and adjustment of other specified devices (principal); M25.561 Pain in right knee | CPT/HCPCS: L1812 ==

== ENCOUNTER 2025-04-09 13:45 | Outpatient (CLI) | payer BC, SELFPAY ==
--- NOTE | 2025-04-09 13:40 | MM_ITS ---
WS: [id number] BILATERAL 3D TOMOSYNTHESIS DIGITAL SCREENING MAMMOGRAPHY WITH CAD CLINICAL INFORMATION: SCREENING HISTORY: Screening mammogram. No current complaints. COMPARISON: 2023 TECHNIQUE: Bilateral CC and MLO views. FINDINGS: The breasts are composed of heterogeneous fibroglandular density tissue, which can limit the detection of small underlying mass lesions. No suspicious mass, asymmetry, calcifications, or architectural distortion. No evidence of malignancy. Biopsy clip RIGHT breast. Stable punctate and clustered calcifi cations. MM/MM [facility] tomosynthesis [id number] IMPRESSION: DENSITY: The breasts are heterogeneously dense, which may obscure small masses. BI-RADS: 2 - Benign FOLLOW UP: 1 Year Follow-up Recommend return to annual screening mammography.
== END 2025-04-09 13:46 | disposition home or self-care (01) ==
LOC: MOBLMAM 13:48
PROVIDERS: PCP Nurse Practitioner Family; Visit Provider Nurse Practitioner Family
DX: Z12.31 Encounter for screening mammogram for malignant neoplasm of breast (principal); R92.333 Mammographic heterogeneous density, bilateral breasts; R92.323 Mammographic fibroglandular density, bilateral breasts; R92.1 Mammographic calcification found on diagnostic imaging of breast; Z96.89 Presence of other specified functional implants
CPT/HCPCS: 77063; 77067

== ENCOUNTER → 2025-04-21 09:07 | Outpatient (BNVA) | payer BC, SELFPAY | PROVIDERS: PCP Nurse Practitioner Family; Visit Provider Internal Medicine Rheumatology | DX: Z79.899 Other long term (current) drug therapy (principal) | CPT/HCPCS: 80076; 82306; 82565; 84439; 84443; 85025; 85651; 86140; 86480 ==